=== PATIENT | female | born 1985 | race Caucasian/White ===

== ENCOUNTER → 2018-02-07 12:58 | Outpatient (CLI) | payer OTHER, SELFPAY ==
[2018-02-07 14:26] LABS: Hematocrit 34.5 % (36-46); Hemoglobin 12.2 g/dL (12.0-16.0)
[2018-02-07 14:42] LABS: GTT (PREG) 1 Hour PP 50gm Dose 167 mg/dL (76-139)
[2018-03-10 16:12] LABS: Urine N gonorrhoeae NOT DETECTED
[2018-03-10 16:45] LABS: Urine Chlamydia NOT DETECTED
== END ==
PROVIDERS: Family Provider Specialist; PCP Specialist; Visit Provider Specialist
DX: Z34.00 Encounter for supervision of normal first pregnancy, unspecified trimester (principal); Z3A.26 26 weeks gestation of pregnancy
CPT/HCPCS: 36415; 82950; 85014; 85018; 87491; 87591

== ENCOUNTER → 2018-02-13 07:15 | Outpatient (CLI) | payer OTHER, SELFPAY ==
[2018-02-13 08:56] LABS: Glucose Fasting Gestational 71 mg/dL (76-95)
[2018-02-13 09:34] LABS: Glucose 1 Hour Gest 154 mg/dL (76-180)
[2018-02-13 10:36] LABS: Glucose Tol Interp,Gestational INTERPRETATION
[2018-02-13 10:39] LABS: Glucose 2 Hour Gest 161 mg/dL (76-155)
[2018-02-13 11:31] LABS: Glucose 3 Hour Gest 74 mg/dL (76-140)
== END ==
PROVIDERS: PCP Specialist; Visit Provider Specialist
DX: R73.02 Impaired glucose tolerance (oral) (principal)
CPT/HCPCS: 36415; 82951; 82952

== ENCOUNTER 2018-02-27 04:39 | Inpatient (IN) | payer OTHER, SELFPAY ==
--- NOTE | 2018-02-27 05:40 | DI.US.S_ITS ---
PROCEDURE: US OB LIMITED INDICATIONS: 32 year-old female with twin gestations and vaginal bleeding. OUTSIDE/PRIOR DATING DATA: Last menstrual period (LMP): August 07, 2017. LMP-based estimated date of delivery (RYLEE): May 14, 2018. First dating scan (date and location): January 03, 2018 at [facility]. Estimated date of delivery (RYLEE) from first dating scan: May 12, 2018. TECHNIQUE: Real-time scanning was performed of the fetus, with image documentation. Endovaginal scanning: Performed to assess cervical length. COMPARISON: [facility], US, US OB >= 14 WEEKS FETUS, 02/19/2018, 14:05. [facility], US, US OB >= 14 WEEKS FETUS, 02/07/2018, 12:39. [facility], , US OB >= 14 WEEKS FETUS, 01/24/2018, 13:33. [facility], , OB COMPLETE 14WKS OR MORE, 01/09/2018, 16:19. [facility], , OB COMPLETE 14WKS OR MORE, 01/03/2018, 14:26. [facility], , OB COMPLETE 14WKS OR MORE, 12/11/2017, 10:01. [facility], , OB COMPLETE 14WKS OR MORE, 11/28/2017, 15:56. [facility], , OB COMPLETE 14WKS OR MORE, 11/06/2017, 15:39. [facility], , OB COMPLETE LESS THAN 14 WKS, 10/10/2017, 16:16. FINDINGS: A single living intrauterine gestation is present. Presentation: Vertex for twin A (inferior), vertex for twin B (right superior). Placenta: Placental position is posterior for both twins, without previa. Amniotic fluid index: 14.3 cm for twin A, 9.8 for twin B; normal range is 5-24 cm. heart rate: 144 beats per minute for twin A, 185 beats per minute for twin B. Maternal cervical canal: 3.2 cm long. Normal lower limit is 2.5 cm. Color Doppler interrogation demonstrates no vasa previa. Estimated gestational age from initial scan: 29 weeks 3 days. IMPRESSION: Twin living dichorionic-diamniotic gestations, both in vertex presentation with normal heart rate. No sonographic explanation for vaginal bleeding. Dictated by: David Knight M.D. on 02/27/2018 at 8:07 Approved by: David Knight M.D. on 02/27/2018 at 8:16
--- NOTE | 2018-02-27 08:25 | PM.OBHP.1 ---
OB HPI History of Present Illness Chief complaint: EVALUATION OF LABOR Narrative: Tangela Kemp is a 32 year old female G3 para 1 estimated due date of 05/17/2018 with a gestational age of 29 weeks. is complicated by dichorionic diamniotic twins history of marginal placenta previa and elevated 1 hr glucose and normal 3 hr glucose patient comes into the Center this morning with complaints of vaginal bleeding painless. She says she kind of felt ill over the weekend with a little bit of cramping. And had some brown discharge. This morning she woke up and she had blood on her panty liner. She presented to the labor and delivery floor she is not having dami vaginal bleeding she is not having significant cramping and does not appear to be madeline. She says she has not had any fevers or chills other vaginal discharge. She was told previously that she has had a placenta that was low over her cervical opening. Up to this point she has had normal activity and physical examination and has been monitored with ultrasounds. Obstetric history. Vaginal delivery in 2006 term with forceps spontaneous in 2016. Gynecological history no history of abnormal Pap smears. History of chlamydia many years ago. Surgical history wisdom teeth Social history. She does not smoke or drink no concerns about alcohol and denies illicit drugs. Medical history patient denies any history of thyroid disorders heart disease hypertension kidney bleeding or blood clotting disorders denies any history of diabetes. blood work blood type AB-positive antibody screen negative last hematocrit 40 urine culture negative hepatitis B surface antigen negative HIV negative rubella immune 2nd trimester screening was negative diabetes screen 1 hr 167 glucose screen to our [id number] and 74. Review of ultrasounds through the were reviewed. An ultrasound was done this morning. [facility] Medical History Acne (Chronic ~2013) Surgical History Anesthesia (Resolved) Family History Father Age: 63 Heart disease Mental health problem Mother Age: 57 Atrial fibrillation Pizano's esophagus Meds Home Medications Medication Instructions Recorded Confirmed Type clomiphene citrate 50 mg PO SEE INSTRUCTIONS #5 tab 07/31/17 Rx Exam Vital Signs (past 8 hours): . General: Alert no apparent distress. Affect is appropriate. Madeline it is uncomfortable. HEENT: Neck is supple without lymphadenopathy pupils equal round and reactive. Cardio: S1-S2 regular rate and rhythm. Respiratory: Lungs clear to auscultation. Abdomen: Gravid. Extremities: Normal deep tendon reflexes trace edema. Stowell: No contractions heart tones: heart tones present for baby a and baby B. Objective Imaging US - abdomen: Radiologist's impression: FINDINGS: A single living intrauterine gestation is present. Presentation: Vertex for twin A (inferior), vertex for twin B (right superior). Placenta: Placental position is posterior for both twins, without previa. Amniotic fluid index: 14.3 cm for twin A, 9.8 for twin B; normal range is 5-24 cm. heart rate: 144 beats per minute for twin A, 185 beats per minute for twin B. Maternal cervical canal: 3.2 cm long. Normal lower limit is 2.5 cm. Color Doppler interrogation demonstrates no vasa previa. Estimated gestational age from initial scan: 29 weeks 3 days. IMPRESSION: Twin living dichorionic-diamniotic gestations, both in vertex presentation with normal heart rate. No sonographic explanation for vaginal bleeding. Assessment and Plan (1) Vaginal bleeding: Current visit: No Status: Acute (2) Intrauterine : Problem details: 32-year-old female G3 para 1 29 weeks gestational age with dichorionic diamniotic twin with vaginal bleeding. Patient will be admitted to labor and delivery floor for observation for the next 24 hr for vaginal bleeding and ultrasound will be done. His CBC with blood type type and screen done. Her blood type is AB-positive so we will hold off on rogam. We will do serial NSTs every 2-4 hours. We will monitor closely for contraction. She will be paced on bed rest. Vaginal be bleeding becomes more brisk aggressive concerns about placental abruption we would anticipate transferring the patient. If it stops. We would consider at providing close serial outpatient monitoring via ultrasound and bedrest. Current visit: Yes Status: Acute
[2018-02-27 08:43] LABS: Add Manual Diff / Slide Review NO; Basophils Percent Auto 0.2 % (0-2); Eosinophils Percent Auto 2.2 % (2-4); Hematocrit 36.5 % (36-46); Hemoglobin 12.8 g/dL (12.0-16.0); Lymphocytes Percent Auto 10.9 % (25-40); Mean Corpuscular HGB Conc 35.1 % (30-36); Mean Corpuscular Hemoglobin 29.8 PG (26-34); Mean Corpuscular Volume 84.9 fL (80-100); Monocytes Percent Auto 6.6 % (3-14); Neutrophils Absolute Auto 10300 /uL (3000-5900); Neutrophils Percent Auto 80.1 % (50-75); Platelet Count 292 X10^3/uL (150-400); Red Cell Distribution Width 13.8 % (11.6-14.8); White Blood Cell Count 12.9 X10^3/uL (4.5-11.0)
== END 2018-02-27 18:00 | disposition home or self-care (01) | DRG 782 ==
PROVIDERS: Admitting Provider Family Medicine; Family Provider Specialist; PCP Specialist; Visit Provider Family Medicine
DX: O44.33 Partial placenta previa with hemorrhage, third trimester (principal); Z3A.29 29 weeks gestation of pregnancy; O30.043 Twin pregnancy, dichorionic/diamniotic, third trimester
CPT/HCPCS: 59025; 59050; 76815; 85025; 86850; 86900; 86901; 99223; G0379

== ENCOUNTER 2018-03-14 19:43 | Inpatient (IN) | payer OTHER, SELFPAY ==
--- NOTE | 2018-03-14 | DI.US.S_ITS ---
PROCEDURE: US OB LIMITED INDICATIONS: HEAVY BLEEDING OUTSIDE/PRIOR DATING DATA: Last menstrual period (LMP): 08/07/2017. LMP-based estimated date of delivery (RYLEE): 05/14/2018. First dating scan (date and location): 01/11/2018. Estimated date of delivery (RYLEE) from first dating scan: 05/12/2018. TECHNIQUE: Real-time scanning was performed of the fetus, with image documentation. Endovaginal scanning: Not requested COMPARISON: [facility], , OB >= 14 WEEKS FETUS, 03/10/2018, 12:01. [facility], , OB >= 14 WEEKS FETUS, 03/05/2018, 8:53. [facility], OB LIMITED, 02/27/2018, 6:29. FINDINGS: Dichorionic diameter pain intrauterine gestations are present. Based on the initial ultrasound, the gestational age is 31 weeks 4 days for both twin A and twin B. Twin A is on the left in vertex presentation. Twin B is on the right in breech presentation. Placenta: Placental position is posterior, without previa for both twin A and twin B. Amniotic fluid index: 12.2 cm for twin A; 12.6 cm within B. Normal range is 5-24 cm. heart rate: 165 beats per minute for twin A; 169 beats per minute for twin B. Maternal cervical canal: Not visualized. IMPRESSION: 1. Live dichorionic diameter pain intrauterine gestations are present with the estimated gestation age 31 weeks 4 days based on initial ultrasound. 2. Placenta is posterior without evidence for abruption although placentas are suboptimally visualized. A cause for heavy bleeding is not identified. 3. Cervix not visualized. Dictated by: Sheryl Feliz M.D. on 03/14/2018 at 22:10 Approved by: Sheryl Feliz M.D. on 03/14/2018 at 22:19
[2018-03-14] MEDS: LACTATED RINGERS 1,000 ML 150 ML IV ×3 (20:15→22:54)
[2018-03-14 20:16] LABS: Add Manual Diff / Slide Review NO; Basophils Percent Auto 0.4 % (0-2); Eosinophils Percent Auto 2.5 % (2-4); Hematocrit 35.6 % (36-46); Hemoglobin 12.4 g/dL (12.0-16.0); Lymphocytes Percent Auto 17.9 % (25-40); Mean Corpuscular HGB Conc 34.8 % (30-36); Mean Corpuscular Hemoglobin 29.5 PG (26-34); Monocytes Percent Auto 7.7 % (3-14); Neutrophils Absolute Auto 10800 /uL (3000-5900); Neutrophils Percent Auto 71.5 % (50-75); Platelet Count 318 X10^3/uL (150-400); Red Blood Cell Count 4.19 X10^6/uL (4.0-5.2); Red Cell Distribution Width 13.6 % (11.6-14.8)
--- NOTE | 2018-03-14 20:25 | PM.HP.1 ---
History of Present Illness Date Patient Seen: 03/14/18 Time Patient Seen: 20:26 Chief complaint: LABOR OBSERVATION Narrative: Patient is a 32-year-old G 4 P 1, dichorionic diamniotic twin gestation, who presented to the Center with heavy vaginal bleeding. Patient reports the vaginal bleeding began about 10 min prior to presentation. Patient came immediately to the center. Patient denies any abdominal pain. Reports some cramping. No recent intercourse. history is significant for blood type of AB positive, antibody negative, serology nonreactive, hepatitis B negative, Chlamydia and gonorrhea negative, rubella immune, HSV 1 positive, HIV negative, negative 2nd trimester genetic screen. Patient History Medical History Acne (Chronic ~2013) Intrauterine (Acute) Surgical History Anesthesia (Resolved) Family & Social History Family History: Reviewed 03/14/18 by Becky Lacy MD Meds Home Medications Medication Instructions Recorded Confirmed Type clomiphene citrate 50 mg PO SEE INSTRUCTIONS #5 tab 07/31/17 Rx Review of Systems Review of Systems All systems reviewed & are unremarkable except as noted in HPI and below Exam Vital Signs (past 8 hours): GENERAL: Well-developed well-nourished woman who appears uncomfortable HEENT: Normocephalic, atraumatic, pupils equal and reactive to light and accommodation. Extraocular movements are intact. Neck supple, no lymphadenopathy. LUNG: Clear to auscultation bilaterally. No wheeze or crackles or rhonchi. No increased work in breathing. CV: Tachycardic No murmurs rubs or gallops. PELVIC: Sterile pelvic exam reveals approximately 100 mL of blood in the vaginal vault, sterile vaginal exam reveals 1 cm dilated, 50% effaced, -3. AFFECT: Alert and oriented X3. Conversational and appropriate. heart rate: Both category 2 position: Vertex, breech Contractions: none present Objective Labs Result Diagrams: 03/14/18 20:09 Labs: Laboratory Results - last 24 hr 03/14/18 20:09 Crossmatch See Detail Assessment & Plan (1) Placental abruption: Current visit: Yes Status: Acute
[2018-03-14 20:29] LABS: D Dimer 647 ng/mL (<230)
[2018-03-14 20:32] LABS: Fibrinogen 512 mg/dL (211-428)
[2018-03-14 20:42] LABS: Alanine Aminotransferase 30 IU/L (9-52); Albumin 3.5 g/dL (3.5-5.0); Albumin Globulin Ratio 1.1 (1.0-2.8); Alkaline Phosphatase 135 U/L (38-126); Aspartate Aminotransferase 23 IU/L (14-36); Bilirubin Total 0.3 mg/dL (0.2-1.3); Blood Urea Nitrogen 9 mg/dL (7-17); Calcium 9.4 mg/dL (8.4-10.2); Carbon Dioxide 23 mmol/L (22-32); Chloride 102 mmol/L (98-107); Estimated Glomerular Filt Rate > 60.0 mL/min (>60); Globulin 3.1 g/dL (1.7-4.1); Glucose 107 mg/dL (70-100); HEMOLYSIS < 15 (0-50); Potassium 3.6 mmol/L (3.4-5.1); Sodium 135 mmol/L (137-145); Total Protein 6.6 g/dL (6.3-8.2)
[2018-03-14 20:45] LABS: INR 0.8 (0.9-1.3); Prothrombin Time 8.3 SECONDS (10.1-12.7)
[2018-03-14] MEDS: BETAMETHASONE 30 MG/5 ML MDV 12 MG IM (20:45)
[2018-03-14 20:46] LABS: PTT Partial Thromboplastin Tim 19 SECONDS (26.4-36.2)
[2018-03-14 20:51] LABS: B Type Natriuretic Peptide < 100.0 (<100)
[2018-03-15 02:09] LABS: Hematocrit 33.5 % (36-46); Hemoglobin 11.7 g/dL (12.0-16.0); Mean Corpuscular HGB Conc 34.8 % (30-36); Mean Corpuscular Hemoglobin 29.4 PG (26-34); Mean Corpuscular Volume 84.5 fL (80-100); Platelet Count 261 X10^3/uL (150-400); Red Blood Cell Count 3.97 X10^6/uL (4.0-5.2); Red Cell Distribution Width 13.6 % (11.6-14.8); White Blood Cell Count 16.8 X10^3/uL (4.5-11.0)
[2018-03-15 02:11] LABS: Add Manual Diff / Slide Review YES
[2018-03-15 03:57] LABS: RBC Morphology Normal Morphology
[2018-03-15] MEDS: LACTATED RINGERS 1,000 ML 150 ML IV (05:03)
[2018-03-15 08:21] LABS: Add Manual Diff / Slide Review NO; Basophils Percent Auto 0.4 % (0-2); Hematocrit 31.8 % (36-46); Lymphocytes Percent Auto 7.9 % (25-40); Mean Corpuscular HGB Conc 34.7 % (30-36); Mean Corpuscular Hemoglobin 29.5 PG (26-34); Mean Corpuscular Volume 84.8 fL (80-100); Monocytes Percent Auto 3.8 % (3-14); Neutrophils Absolute Auto 14100 /uL (3000-5900); Neutrophils Percent Auto 87.9 % (50-75); Platelet Count 256 X10^3/uL (150-400); Red Blood Cell Count 3.75 X10^6/uL (4.0-5.2); Red Cell Distribution Width 13.6 % (11.6-14.8); White Blood Cell Count 16.1 X10^3/uL (4.5-11.0)
[2018-03-15] MEDS: BETAMETHASONE 30 MG/5 ML MDV 12 MG IM (09:26)
--- NOTE | 2018-03-15 10:24 | P.DS_ITS ---
Discharge Providers Date of admission: 03/15/18 09:06 Primary care physician: Shira Colbert MD Discharge provider: Shira Colbert MD Summary Date Patient Seen: 03/15/18 Time Patient Seen: 10:16 Hospital Course: Patient arrived on Labor and delivery on 03/14/2018 with a sudden onset of significant vaginal bleeding. She came to Labor and delivery with no complaints other than the bleeding. heart tones were reassuring. Ultrasound did not clearly show evidence of abruption. Placentas were posterior with head vertex and breech. Normal amniotic fluid volume. Cervical exam was 1 cm dilated 50% effaced with the presenting head -3. There were no contractions on the monitor. The patient was continuously monitored and her bleeding slowed. Overnight the patient remained stable. She began having evidence of uterine irritability. The patient only felt some pressure like she needed to urinate. However she had some slight increase in her vaginal bleeding. Cervical exam had changed to 100% effaced, still 1 cm but presenting head descended to -2 station. Decision was made to transfer her to a hospital with level 3 nursery. Patient received 2 doses of betamethasone. She was started on magnesium sulfate for transfer. Patient's blood pressure 118/63, pulse of 94, temperature 97.9?. Patient's abdomen is soft with no significant tenderness. heart tones reactive with both twins baseline between 140 and 150. Category 1. Discharge Diagnosis (1) Dichorionic diamniotic twin in third trimester: Status: Acute (2) Placental abruption: Status: Acute Time Spent with Patient Total time spent providing and/or coordinating discharge services: Greater than 30 minutes Objective Imaging US - abdomen: Radiologist's impression: FINDINGS: Dichorionic diameter pain intrauterine gestations are present. Based on the initial ultrasound, the gestational age is 31 weeks 4 days for both twin A and twin B. Twin A is on the left in vertex presentation. Twin B is on the right in breech presentation. Placenta: Placental position is posterior, without previa for both twin A and twin B. Amniotic fluid index: 12.2 cm for twin A; 12.6 cm within B. Normal range is 5- 24 cm. heart rate: 165 beats per minute for twin A; 169 beats per minute for twin B. Maternal cervical canal: Not visualized. IMPRESSION: 1. Live dichorionic diameter pain intrauterine gestations are present with the estimated gestation age 31 weeks 4 days based on initial ultrasound. 2. Placenta is posterior without evidence for abruption although placentas are suboptimally visualized. A cause for heavy bleeding is not identified. 3. Cervix not visualized. Labs Result Diagrams: 03/15/18 08:15 03/14/18 20:30 Labs: Laboratory Results - last 24 hr 03/14/18 03/14/18 03/14/18 20:09 20:09 20:09 WBC 15.0 H RBC 4.19 Hgb 12.4 Hct 35.6 L MCV 85.0 MCH 29.5 MCHC 34.8 RDW 13.6 Plt Count 318 Neut % (Auto) 71.5 Lymph % (Auto) 17.9 L Garza % (Auto) 7.7 Eos % (Auto) 2.5 Baso % (Auto) 0.4 Neut # (Auto) 60068 H Seg Neutrophils % Band Neutrophils % Lymphocytes % (Manual) Monocytes % (Manual) Metamyelocytes % RBC Morphology PT 8.3 L INR 0.8 L APTT 19 L Fibrinogen D-Dimer Sodium Potassium Chloride Carbon Dioxide BUN Creatinine Estimated GFR BUN/Creatinine Ratio Glucose Calcium Total Bilirubin AST ALT Alkaline Phosphatase B-Natriuretic Peptide < 100.0 Total Protein Albumin Globulin Albumin/Globulin Ratio Blood Type AB Positive Antibody Screen Negative Crossmatch See Detail 03/14/18 03/14/18 03/15/18 20:09 20:30 02:00 WBC 16.8 H RBC 3.97 L Hgb 11.7 L Hct 33.5 L MCV 84.5 MCH 29.4 MCHC 34.8 RDW 13.6 Plt Count 261 Neut % (Auto) Not Reportable Lymph % (Auto) Not Reportable Garza % (Auto) Not Reportable Eos % (Auto) Not Reportable Baso % (Auto) Not Reportable Neut # (Auto) Seg Neutrophils % 83.0 H Band Neutrophils % 3.0 Lymphocytes % (Manual) 8.0 L Monocytes % (Manual) 5.0 Metamyelocytes % 1.0 H RBC Morphology Normal morphology PT INR APTT Fibrinogen 512 H D-Dimer 647 H Sodium 135 L Potassium 3.6 Chloride 102 Carbon Dioxide 23 BUN 9 Creatinine 0.50 L Estimated GFR > 60.0 BUN/Creatinine Ratio 18.0 Glucose 107 H Calcium 9.4 Total Bilirubin 0.3 AST 23 ALT 30 Alkaline Phosphatase 135 H B-Natriuretic Peptide Total Protein 6.6 Albumin 3.5 Globulin 3.1 Albumin/Globulin Ratio 1.1 Blood Type Antibody Screen Crossmatch 03/15/18 08:15 WBC 16.1 H RBC 3.75 L Hgb 11.0 L Hct 31.8 L MCV 84.8 MCH 29.5 MCHC 34.7 RDW 13.6 Plt Count 256 Neut % (Auto) 87.9 H Lymph % (Auto) 7.9 L Garza % (Auto) 3.8 Eos % (Auto) 0.0 L Baso % (Auto) 0.4 Neut # (Auto) 05039 H Seg Neutrophils % Band Neutrophils % Lymphocytes % (Manual) Monocytes % (Manual) Metamyelocytes % RBC Morphology PT INR APTT Fibrinogen D-Dimer Sodium Potassium Chloride Carbon Dioxide BUN Creatinine Estimated GFR BUN/Creatinine Ratio Glucose Calcium Total Bilirubin AST ALT Alkaline Phosphatase B-Natriuretic Peptide Total Protein Albumin Globulin Albumin/Globulin Ratio Blood Type Antibody Screen Crossmatch Discharge Plan Discharge Plan Patient Disposition: [facility] Under care of provider: Dr. Megha Azar Discharge Med Rec/Prescriptions Prescriptions: No Action 1 tab tablet 1 tab PO DAILY RF: 0 Discharge Orders: Discharge (Order); Ordered 03/15/18 Ordered By: Shira Colbert Discharge Health Status Brief summary of current health status: Currently stable but with increased risk of premature delivery Provider Discharge Instructions Diet: Diet as Tolerated Activity: Bed rest with bathroom privileges Discharge Data Admit Date/Time: 03/15/18 09:06
[2018-03-15] MEDS: MAGNESIUM SULFATE 4 GM/100 ML PIGGYBACK IV (10:30)
[2018-03-15] MEDS: MAGNESIUM SULFATE 20 GM/500 ML IV.SOLN IV (10:52)
== END 2018-03-15 11:40 | disposition short-term general hospital (02) | DRG 782 ==
PROVIDERS: Admitting Provider Family Medicine; Family Provider Specialist; PCP Specialist; Visit Provider Family Medicine
DX: O45.93 Premature separation of placenta, unspecified, third trimester (principal); Z3A.31 31 weeks gestation of pregnancy; O30.043 Twin pregnancy, dichorionic/diamniotic, third trimester
CPT/HCPCS: 36415; 59025; 59050; 76815; 80053; 83880; 85025; 85379; 85384; 85610; 85730; 86850; 86900; 86901; 96360; 96372; G0378; G0379; J0702; J3475

== ENCOUNTER → 2019-05-08 10:43 | Outpatient (CLI) | payer OTHER, SELFPAY ==
[2019-05-08 11:16] LABS: Hematocrit 44.6 % (36-46); Hemoglobin 15.2 g/dL (12.0-16.0); Mean Corpuscular HGB Conc 34.1 % (30-36); Mean Corpuscular Hemoglobin 28.6 PG (26-34); Mean Corpuscular Volume 83.7 fL (80-100); Platelet Count 352 X10^3/uL (150-400); Red Blood Cell Count 5.32 X10^6/uL (4.0-5.2); Red Cell Distribution Width 13.3 % (11.6-14.8); White Blood Cell Count 8.3 X10^3/uL (4.5-11.0)
[2019-05-08 11:44] LABS: Neutrophils Absolute Manual 4897 /uL (3000-5900); Total Cells Counted 100
[2019-05-08 11:47] LABS: Alanine Aminotransferase 15 IU/L (9-52); Albumin 4.7 g/dL (3.5-5.0); Albumin Globulin Ratio 1.6 (1.0-2.8); Alkaline Phosphatase 57 U/L (38-126); Aspartate Aminotransferase 19 IU/L (14-36); Bilirubin Total 0.6 mg/dL (0.2-1.3); Blood Urea Nitrogen 15 mg/dL (7-17); Calcium 9.7 mg/dL (8.4-10.2); Carbon Dioxide 29 mmol/L (22-32); Chloride 103 mmol/L (98-107); Cholesterol 155 mg/dL (140-199); Estimated Glomerular Filt Rate > 60.0 mL/min (>60); Glucose 103 mg/dL (70-100); HDL Cholesterol 69 mg/dL (40-60); HEMOLYSIS < 15 (0-50); LDL Cholesterol Calculated 77 mg/dL (<100); Sodium 139 mmol/L (137-145); Total Protein 7.7 g/dL (6.3-8.2); Triglycerides 43 mg/dL (35-150)
[2019-05-08 11:51] LABS: RBC Morphology Normal Morphology
[2019-05-08 12:07] LABS: Appearance Urine UA CLEAR; Bilirubin Urine UA NEGATIVE (NEGATIVE); Color Urine UA YELLOW; Glucose Urine UA NEGATIVE (Negative); Ketones Urine UA NEGATIVE (NEGATIVE); Leukocyte Esterase Urine UA NEGATIVE (NEGATIVE); Nitrite Urine UA NEGATIVE (Negative); Occult Blood Urine UA TRACE-LYSED (Negative); Protein Urine UA NEGATIVE (Negative); Urobilinogen Urine UA 0.2 E.U./dL (0.2)
[2019-05-08 12:17] LABS: Thyroid Stimulating Hormone 0.84 uIU/mL (0.47-4.68)
== END ==
PROVIDERS: Family Provider Specialist; PCP Specialist; Visit Provider Family Medicine
DX: E66.3 Overweight (principal); L70.9 Acne, unspecified; Z13.220 Encounter for screening for lipoid disorders; Z13.29 Encounter for screening for other suspected endocrine disorder
CPT/HCPCS: 36415; 80053; 80061; 81003; 84443; 85025

== ENCOUNTER → 2020-05-18 11:24 | Outpatient (CLI) | payer OTHER, SELFPAY ==
[2020-05-18 12:12] LABS: Hemoglobin A1C% w Est Avg Glu 5.4 % (4.0-6.0)
[2020-05-18 12:13] LABS: Add Manual Diff / Slide Review NO; Basophils Absolute Auto 0 /uL (0-100); Basophils Percent Auto 0.5 % (0-2); Eosinophils Absolute Auto 300 /uL (0-450); Eosinophils Percent Auto 3.7 % (2-4); Hematocrit 40.8 % (36-46); Hemoglobin 13.9 g/dL (12.0-16.0); Lymphocytes Absolute Auto 2200 /uL (1100-4500); Mean Corpuscular HGB Conc 34.1 % (30-36); Mean Corpuscular Hemoglobin 28.4 PG (26-34); Mean Corpuscular Volume 83.4 fL (80-100); Monocytes Absolute Auto 500 /uL (0-900); Monocytes Percent Auto 6.3 % (3-14); Neutrophils Absolute Auto 5500 /uL (1500-7000); Neutrophils Percent Auto 63.5 % (50-75); Platelet Count 335 X10^3/uL (150-400); Red Blood Cell Count 4.89 X10^6/uL (4.0-5.2); Red Cell Distribution Width 13.4 % (11.6-14.8); White Blood Cell Count 8.6 X10^3/uL (4.5-11.0)
[2020-05-18 12:37] LABS: Alanine Aminotransferase 21 IU/L (<35); Albumin 4.7 g/dL (3.5-5.0); Albumin Globulin Ratio 1.6 (1.0-2.8); Alkaline Phosphatase 64 U/L (38-126); Aspartate Aminotransferase 24 IU/L (14-36); BUN Creatinine Ratio 21.9 (6-22); Bilirubin Total 0.7 mg/dL (0.2-1.3); Blood Urea Nitrogen 14 mg/dL (7-17); Calcium 9.7 mg/dL (8.4-10.2); Carbon Dioxide 29 mmol/L (22-32); Chloride 102 mmol/L (98-107); Cholesterol 187 mg/dL (140-199); Estimated Glomerular Filt Rate > 60.0 mL/min (>60); Globulin 2.9 g/dL (1.7-4.1); Glucose 89 mg/dL (70-100); HDL Cholesterol 74 mg/dL (40-60); HEMOLYSIS < 15 (0-50); LDL Cholesterol Calculated 100 mg/dL (<100); Potassium 4.5 mmol/L (3.4-5.1); Sodium 137 mmol/L (137-145); Total Protein 7.6 g/dL (6.3-8.2); Triglycerides 64 mg/dL (35-150)
[2020-05-18 13:05] LABS: TSH w/ Reflex to FT4 1.44 uIU/mL (0.47-4.68)
== END ==
PROVIDERS: Family Provider Specialist; PCP Registered Nurse Diabetes Educator; Referring Provider Registered Nurse Diabetes Educator; Visit Provider Registered Nurse Diabetes Educator
DX: R73.01 Impaired fasting glucose (principal); Z00.00 Encounter for general adult medical examination without abnormal findings
CPT/HCPCS: 36415; 80053; 80061; 83036; 84443; 85025

== ENCOUNTER → 2021-07-13 15:51 | Outpatient (CLI) | payer OTHER, SELFPAY ==
--- NOTE | 2021-07-13 15:52 | DI.US.S_ITS ---
PROCEDURE: US PELVIC COMPLETE INDICATIONS: EVALUATE INTRAUTERINE DEVICE LOCATION TECHNIQUE: Real-time scanning was performed of the pelvic organs, with image documentation. Additional endovaginal scanning was necessary due to incomplete visualization of the adnexal and endometrial structures by transabdominal scanning. COMPARISON: [facility], , PELVIC COMPLETE, 01/04/2016, 22:08. FINDINGS: Uterus: Uterus is normal in size at 7.6 x 4.9 x 4.4 cm and is anteverted. The endometrium measures 6.8 mm in combined thickness. Intrauterine device in expected central position. Ovaries: Regressing physiologic cyst associated right ovary measuring up to 2.8 cm; otherwise the ovaries are normal bilaterally. No adnexal masses seen. Other: No pathologic free abdominal or pelvic fluid. IMPRESSION: 1. Intrauterine device in expected central position. 2. Regressing right physiologic cyst. Dictated by: Jamie NICHOLE Interpreted: Jamison Schroeder MD on 07/13/2021 at 16:40 Transcribed by: ILANA on 07/13/2021 at 16:42 Approved by: Jamison Schroeder M.D. on 07/13/2021 at 17:01
== END ==
PROVIDERS: Family Provider Specialist; PCP Registered Nurse Diabetes Educator; Referring Provider Registered Nurse Diabetes Educator; Visit Provider Registered Nurse Diabetes Educator
DX: Z30.431 Encounter for routine checking of intrauterine contraceptive device (principal); N83.291 Other ovarian cyst, right side
CPT/HCPCS: 76830; 76856

== ENCOUNTER → 2022-12-09 16:18 | Outpatient (CLI) | payer BC, SELFPAY ==
--- NOTE | 2022-12-09 16:20 | DI.RAD.S_ITS ---
PROCEDURE: XR FOREARM RT 2V INDICATIONS: Right forearm injury TECHNIQUE: 2 views of the forearm were acquired. COMPARISON: None. FINDINGS: Bones: No fractures or dislocations. No suspicious bony lesions. Soft tissues: Soft tissue prominence along the mid dorsal ulna. IMPRESSION: Soft tissue prominence likely reflecting hematoma along the dorsal ulna without fracture. Dictated by: Robin Coronado M.D. on 12/09/2022 at 15:52 Approved by: Robin Coronado M.D. on 12/09/2022 at 15:53
--- NOTE | 2022-12-09 16:20 | DI.RAD.S_ITS ---
PROCEDURE: XR HAND RT MIN 3V INDICATIONS: Right forearm injury TECHNIQUE: 3 views of the hand(s) acquired. COMPARISON: None. FINDINGS: Bones: No fractures or dislocations. Carpal bones are normally aligned. No suspicious bony lesions. Soft tissues: No suspicious soft tissue calcifications. IMPRESSION: Normal hand radiographs. Dictated by: Robin Corondao M.D. on 12/09/2022 at 15:53 Approved by: Robin Coronado M.D. on 12/09/2022 at 15:55
== END ==
PROVIDERS: Family Provider Specialist; PCP Registered Nurse Diabetes Educator; Referring Provider Registered Nurse; Visit Provider Registered Nurse
DX: M79.631 Pain in right forearm (principal); M79.641 Pain in right hand
CPT/HCPCS: 73090; 73130

== ENCOUNTER → 2023-08-28 09:03 | Outpatient (CLI) | payer BC, SELFPAY ==
[2023-08-28 09:57] LABS: Hematocrit 41.7 % (36-46); Hemoglobin 14.1 g/dL (12.0-16.0); Mean Corpuscular HGB Conc 33.9 % (30-36); Mean Corpuscular Volume 82.7 fL (80-100); Platelet Count 374 X10^3/uL (150-400); Red Blood Cell Count 5.04 X10^6/uL (4.0-5.2); Red Cell Distribution Width 13.1 % (11.6-14.8); White Blood Cell Count 7.9 X10^3/uL (4.5-11.0)
[2023-08-28 10:06] LABS: Alanine Aminotransferase 55 IU/L (<35); Albumin 4.6 g/dL (3.5-5.0); Albumin Globulin Ratio 1.5 (1.0-2.8); Alkaline Phosphatase 55 U/L (38-126); Aspartate Aminotransferase 39 IU/L (14-36); Bilirubin Total 0.7 mg/dL (0.2-1.3); Blood Urea Nitrogen 14 mg/dL (7-17); Calcium 9.5 mg/dL (8.4-10.2); Carbon Dioxide 28 mmol/L (22-32); Chloride 103 mmol/L (98-107); Cholesterol 176 mg/dL (140-199); Estimated Glomerular Filt Rate > 60 mL/min (>60); Globulin 3.1 g/dL (1.7-4.1); Glucose 92 mg/dL (70-100); HDL Cholesterol 57 mg/dL (40-60); HEMOLYSIS < 15 (0-50); LDL Cholesterol Calculated 105 mg/dL (<100); Potassium 4.5 mmol/L (3.4-5.1); Sodium 138 mmol/L (137-145); Total Protein 7.7 g/dL (6.3-8.2); Triglycerides 71 mg/dL (35-150)
[2023-08-28 10:47] LABS: TSH w/ Reflex to FT4 1.38 uIU/mL (0.47-4.68)
== END ==
PROVIDERS: Family Provider Specialist; PCP Registered Nurse Diabetes Educator; Referring Provider Registered Nurse Diabetes Educator; Visit Provider Registered Nurse Diabetes Educator
DX: Z00.00 Encounter for general adult medical examination without abnormal findings (principal)
CPT/HCPCS: 36415; 80053; 80061; 84443; 85027

== ENCOUNTER → 2024-07-23 09:02 | Outpatient (CLI) | payer BC, SELFPAY ==
[2024-07-23 10:57] LABS: Alanine Aminotransferase 33 IU/L (<35); Albumin 4.9 g/dL (3.5-5.0); Albumin Globulin Ratio 1.7 (1.0-2.8); Alkaline Phosphatase 67 U/L (38-126); Aspartate Aminotransferase 29 IU/L (14-36); Bilirubin Total 0.6 mg/dL (0.2-1.3); Bilirubin Unconjugated 0.4 mg/dL (0.0-1.1); Globulin 2.9 g/dL (1.7-4.1); HEMOLYSIS < 15 (0-50); Total Protein 7.8 g/dL (6.3-8.2)
[2024-07-23 20:01] LABS: Alanine Aminotransferase 35 IU/L (<35); Albumin 4.6 g/dL (3.5-5.0); Albumin Globulin Ratio 1.4 (1.0-2.8); Alkaline Phosphatase 68 U/L (38-126); Aspartate Aminotransferase 33 IU/L (14-36); BUN Creatinine Ratio 21.5 (6-22); Bilirubin Total 0.6 mg/dL (0.2-1.3); Blood Urea Nitrogen 14 mg/dL (7-17); Calcium 9.7 mg/dL (8.4-10.2); Carbon Dioxide 23 mmol/L (22-32); Chloride 102 mmol/L (98-107); Cholesterol 200 mg/dL (140-199); Estimated Glomerular Filt Rate > 60 mL/min (>60); Globulin 3.2 g/dL (1.7-4.1); Glucose 88 mg/dL (70-100); HDL Cholesterol 73 mg/dL (40-60); HEMOLYSIS 17 (0-50); LDL Cholesterol Calculated 115 mg/dL (<100); Potassium 4.6 mmol/L (3.4-5.1); Sodium 136 mmol/L (137-145); Total Protein 7.8 g/dL (6.3-8.2); Triglycerides 62 mg/dL (35-150)
[2024-07-23 20:31] LABS: TSH w/ Reflex to FT4 1.62 uIU/mL (0.47-4.68)
== END ==
PROVIDERS: Family Provider Specialist; PCP Registered Nurse Diabetes Educator; Referring Provider Registered Nurse Diabetes Educator; Visit Provider Registered Nurse Diabetes Educator
DX: R74.8 Abnormal levels of other serum enzymes (principal); R73.01 Impaired fasting glucose; Z13.9 Encounter for screening, unspecified
CPT/HCPCS: 36415; 80053; 80061; 80076; 84443

== ENCOUNTER → 2025-08-06 09:09 | Outpatient (CLI) | payer BC, SELFPAY ==
[2025-08-06 09:46] LABS: Hematocrit 43.0 % (36-46); Hemoglobin 14.6 g/dL (12.0-16.0); Mean Corpuscular HGB Conc 33.9 % (30-36); Mean Corpuscular Hemoglobin 28.2 PG (26-34); Mean Corpuscular Volume 83.2 fL (80-100); Platelet Count 376 X10^3/uL (150-400)
[2025-08-06 10:14] LABS: Alanine Aminotransferase 40 IU/L (<35); Albumin 4.9 g/dL (3.5-5.0); Albumin Globulin Ratio 1.6 (1.0-2.8); Alkaline Phosphatase 62 U/L (38-126); Blood Urea Nitrogen 14 mg/dL (7-17); Calcium 9.2 mg/dL (8.4-10.2); Carbon Dioxide 26 mmol/L (22-32); Chloride 103 mmol/L (98-107); Cholesterol 210 mg/dL (140-199); Estimated Glomerular Filt Rate > 60 mL/min (>60); Globulin 3.0 g/dL (1.7-4.1); Glucose 88 mg/dL (70-99); HDL Cholesterol 67 mg/dL (40-60); HEMOLYSIS < 15 (0-50); Potassium 4.2 mmol/L (3.4-5.1); Sodium 138 mmol/L (137-145); Total Protein 7.9 g/dL (6.3-8.2); Triglycerides 93 mg/dL (35-150)
[2025-08-06 10:28] LABS: Free T4, Direct Thyroxine 1.12 ng/dL (0.78-2.19); Vitamin D 25 Hydroxy (D3) 30.5 ng/mL (30.0-100.0)
[2025-08-06 10:42] LABS: Thyroid Stimulating Hormone 1.13 uIU/mL (0.47-4.68)
== END ==
PROVIDERS: PCP Registered Nurse Diabetes Educator; Referring Provider Registered Nurse Diabetes Educator; Visit Provider Registered Nurse Diabetes Educator
DX: Z00.00 Encounter for general adult medical examination without abnormal findings (principal); E78.00 Pure hypercholesterolemia, unspecified; F32.A Depression, unspecified; R74.8 Abnormal levels of other serum enzymes
CPT/HCPCS: 36415; 80053; 80061; 82306; 84439; 84443; 85027